=== PATIENT | male | born 2000 | race Caucasian/White ===

== ENCOUNTER 2024-05-15 10:09 | Emergency (ER) | payer BC ==
[~2024-05-15] VITALS: Ht 175.3 cm; Wt 104.3 kg
[2024-05-15 10:45] VITALS: BP 157/93; TEMP 98.3; O2SAT 98
[2024-05-15] MEDS ORDERED: KETOROLAC TROMETHAMINE 15 MG/ML VIAL ONE (11:27)
[2024-05-15] MEDS ORDERED: IBUP-1955 PO (11:30)
[2024-05-15] MEDS ORDERED: AMOX500C2 PO (11:30)
[2024-05-15] MEDS: KETOROLAC TROMETHAMINE 15 MG/ML VIAL IM ONE (11:30)
[2024-05-15] MEDS: BACI/NEOM/POLY B OINT PKT 1 UDPKT PACKET TP ONE (11:38)
== END 2024-05-15 11:42 | disposition home or self-care (01) ==
LOC: ER 10:19
DX: J06.9 Acute upper respiratory infection, unspecified (principal); H66.92 Otitis media, unspecified, left ear
CPT/HCPCS: 99283; 96372; J1885